=== PATIENT | female | born 1995 | race Caucasian/White ===

== ENCOUNTER → 2020-05-02 17:02 | Outpatient (BNVA) | payer OTHER, SELFPAY | PROVIDERS: Family Provider Family Medicine; PCP Family Medicine; Visit Provider Nurse Practitioner Women's Health | DX: N87.0 Mild cervical dysplasia (principal); I10 Essential (primary) hypertension; Z87.42 Personal history of other diseases of the female genital tract | CPT/HCPCS: 80053; 88175 ==

== ENCOUNTER → 2021-05-08 16:14 | Outpatient (BNVA) | payer OTHER, SELFPAY | PROVIDERS: Family Provider Family Medicine; PCP Family Medicine; Visit Provider Nurse Practitioner Women's Health | DX: Z01.419 Encounter for gynecological examination (general) (routine) without abnormal findings (principal); N87.0 Mild cervical dysplasia; Z87.42 Personal history of other diseases of the female genital tract | CPT/HCPCS: 88175 ==

== ENCOUNTER 2021-05-16 06:19 | Outpatient (CLI) | payer OTHER, SELFPAY ==
[2021-05-16 07:05] LABS: Chol HDL Ratio 4.42 mg/dL (0.0-4.40); Cholesterol 168 mg/dL (0-200); Estmated Average Glucose 103; HDL Cholesterol 38 mg/dL (60-100); Hemoglobin A1C 5.2 % (4.0-6.0); LDL Cholesterol Calculated 108 mg/dL (50-129); LDL HDL Ratio 2.84 RATIO (0.00-3.22); Triglycerides 110 mg/dL (0-150)
== END 2021-05-16 06:20 | disposition home or self-care (01) ==
LOC: LAB 06:24
PROVIDERS: PCP Family Medicine; Visit Provider Internal Medicine
DX: D50.9 Iron deficiency anemia, unspecified (principal); N87.0 Mild cervical dysplasia; Z87.42 Personal history of other diseases of the female genital tract
CPT/HCPCS: 36415; 80061; 83036

== ENCOUNTER 2021-08-12 15:43 | Outpatient (CLI) | payer OTHER, SELFPAY ==
[2021-08-12 16:51] LABS: Free T4 Free Thyroxine 1.32 ng/dL (0.82-1.77); Thyroid Stimulating Hormone 0.67 uIU/mL (0.27-4.20)
[2021-08-13 15:17] LABS: Thyroid Peroxidase Antobodies 1 IU/mL (<9)
== END 2021-08-12 15:44 | disposition home or self-care (01) ==
LOC: LAB 15:52
PROVIDERS: PCP Family Medicine; Visit Provider Internal Medicine
DX: E07.9 Disorder of thyroid, unspecified (principal); L65.9 Nonscarring hair loss, unspecified
CPT/HCPCS: 36415; 84439; 84443; 86376

== ENCOUNTER 2022-08-29 16:33 | Outpatient (CLI) | payer OTHER, SELFPAY ==
--- NOTE | 2022-08-29 16:40 | XRR_ITS ---
PROCEDURE INFORMATION: Exam: XR Right Knee Exam date and time: 08/29/2022 4:42 PM Age: 26 years old Clinical indication: Right; Patient HX: Pain in knee since Thursday. No trauma per patient; Additional info: Right knee injury TECHNIQUE: Imaging protocol: Radiologic exam of the Right knee. Views: 3 views. COMPARISON: No relevant prior studies available. FINDINGS: Bones/joints: Normal. Soft tissues: Normal. XR/XR knee RT 3V* [id number] IMPRESSION: No acute findings.
== END 2022-08-29 16:34 | disposition home or self-care (01) ==
PROVIDERS: PCP Family Medicine; Visit Provider Emergency Medicine
DX: S89.91XA Unspecified injury of right lower leg, initial encounter (principal); X58.XXXA Exposure to other specified factors, initial encounter
CPT/HCPCS: 73562

== ENCOUNTER → 2023-01-20 09:09 | Outpatient (BNVA) | payer OTHER, SELFPAY | PROVIDERS: PCP Family Medicine; Visit Provider Internal Medicine | DX: E28.2 Polycystic ovarian syndrome (principal); L65.9 Nonscarring hair loss, unspecified; E66.9 Obesity, unspecified; Z68.42 Body mass index [BMI] 45.0-49.9, adult | CPT/HCPCS: 99214 ==

== ENCOUNTER 2023-03-12 13:38 | Outpatient (CLI) | payer OTHER, SELFPAY ==
[2023-03-12 14:54] LABS: Chol HDL Ratio 2.78 mg/dL (0.0-4.40); Cholesterol 186 mg/dL (0-200); HDL Cholesterol 67 mg/dL (60-100); LDL Cholesterol Calculated 100 mg/dL (50-129); LDL HDL Ratio 1.49 RATIO (0.00-3.22); Triglycerides 95 mg/dL (0-150)
[2023-03-12 15:08] LABS: Estmated Average Glucose 88; Hemoglobin A1C 4.7 % (4.0-6.0)
== END 2023-03-12 13:39 | disposition home or self-care (01) ==
PROVIDERS: PCP Family Medicine; Visit Provider Internal Medicine
DX: E28.2 Polycystic ovarian syndrome (principal); L65.9 Nonscarring hair loss, unspecified
CPT/HCPCS: 80061; 83036

== ENCOUNTER → 2023-03-23 09:55 | Outpatient (BNVA) | payer OTHER, SELFPAY | PROVIDERS: PCP Family Medicine; Visit Provider Internal Medicine | DX: E28.2 Polycystic ovarian syndrome (principal); L65.9 Nonscarring hair loss, unspecified | CPT/HCPCS: 99214 ==

== ENCOUNTER → 2023-09-24 09:52 | Outpatient (BNVA) | payer OTHER, SELFPAY | PROVIDERS: PCP Family Medicine; Visit Provider Internal Medicine | DX: E28.2 Polycystic ovarian syndrome (principal); L65.9 Nonscarring hair loss, unspecified; E66.9 Obesity, unspecified; Z68.41 Body mass index [BMI] 40.0-44.9, adult; Z79.85 Long-term (current) use of injectable non-insulin antidiabetic drugs | CPT/HCPCS: 99214 ==

== ENCOUNTER → 2024-03-09 15:30 | Outpatient (BNVA) | payer OTHER, SELFPAY | PROVIDERS: PCP Family Medicine; Visit Provider Nurse Practitioner Women's Health | DX: Z12.4 Encounter for screening for malignant neoplasm of cervix (principal); E28.2 Polycystic ovarian syndrome; Z01.419 Encounter for gynecological examination (general) (routine) without abnormal findings | CPT/HCPCS: 87624 ==

== ENCOUNTER → 2024-03-10 08:24 | Outpatient (BNVA) | payer OTHER, SELFPAY | PROVIDERS: PCP Family Medicine; Visit Provider Nurse Practitioner Women's Health | DX: N91.2 Amenorrhea, unspecified (principal); E28.2 Polycystic ovarian syndrome; Z13.29 Encounter for screening for other suspected endocrine disorder | CPT/HCPCS: 80061; 83036; 84439; 84443 ==